=== PATIENT | male | born 1970 | race Caucasian/White ===

== ENCOUNTER 2018-10-07 16:50 | Inpatient (IN) | payer MEDICARE, MEDICAID ==
[~2018-10-07] VITALS: Ht 177.8 cm; Wt 113.4 kg
[2018-10-07] MEDS ORDERED: ONDANSETRON HCL 4MG/2ML INJ IV STA (17:25)
[2018-10-07] MEDS ORDERED: SODIUM CHLORIDE 0.9% 1,000 ML IV ONE (17:25)
[2018-10-07] MEDS ORDERED: MORPHINE SULFATE 4 MG/ML CPJ (NOT FOR IM USE) IV STA (17:25)
[2018-10-07] MEDS ORDERED: ACETAMINOPHEN 325MG TABLET PO STA (17:25)
[2018-10-07] MEDS ORDERED: PIPERACILLIN/TAZ 3.375G PREMIX 50 ML IV ONE (17:30)
[2018-10-07] MEDS ORDERED: VANCOMYCIN 1 G PREMIX 200 ML IV ONE (17:30)
[2018-10-07] MEDS ORDERED: OLANZAPINE 10 MG/VIAL IM ONE (18:30)
[2018-10-07] MEDS ORDERED: LORAZEPAM 2MG/ML CPJ IV ONE (18:30)
[2018-10-07 18:34] LABS: BASOPHILS % 1.2 % (0.0-2.0); EOSINOPHILS % 3.4 % (0.0-5.0); HEMATOCRIT. 25.7 % (42.0-52.0); HEMOGLOBIN. 8.8 g/dL (14.0-18.0); LYMPHOCYTES % 12.9 % (20.0-50.0); MEAN CORPUSCULAR VOLUME 93.5 fL (80.0-94.0); MEAN PLATELET VOLUME 7.6 fl (7.4-10.4); MONOCYTES % 14.6 % (2.0-8.0); NEUTROPHILS % 67.9 % (40.0-76.0); PLATELET 131 x1000/uL (130-400); RED BLOOD CELL COUNT 2.75 mill/uL (4.7-6.1); RED CELL DISTRIBUTION WIDTH 18.3 % (11.6-14.6)
[2018-10-07 18:36] LABS: CHLORIDE 101 mEq/L (98-107)
[2018-10-07 18:37] LABS: INR 1.2; PROTHROMBIN TIME 12.7 sec (9.6-11.0)
[2018-10-07 18:40] LABS: ETHANOL BLOOD < 10 mg/dL
[2018-10-07] MEDS ORDERED: ONDANSETRON HCL 4MG/2ML INJ IV PRN (20:30)
[2018-10-07] MEDS ORDERED: GUAIFENESIN 200MG/10ML SUGAR FREE UDC PO PRN (20:30)
[2018-10-07] MEDS ORDERED: TRAMADOL 50MG TABLET PO PRN (20:30)
[2018-10-07] MEDS ORDERED: MAGNESIUM/ALUMINUM HYDROXIDE/SIMETHICONE 30ML UDC PO PRN (20:30)
[2018-10-07] MEDS ORDERED: ACETAMINOPHEN 325MG TABLET PO PRN (20:30)
[2018-10-07] MEDS ORDERED: IPRATROPIUM/ALBUTEROL 0.5-3(2.5)MG/3ML NEB INH PRN (20:30)
[2018-10-07] MEDS ORDERED: PIPERACILLIN/TAZ 3.375G PREMIX 50 ML IV SCH (20:30)
[2018-10-07] MEDS ORDERED: ZOLPIDEM TARTRATE 5MG TABLET PO PRN (20:30)
[2018-10-07] MEDS ORDERED: NITROGLYCERIN 0.4MG TABLET SL SL PRN (20:30)
[2018-10-07] MEDS ORDERED: CLONIDINE 0.1MG TABLET PO PRN (20:30)
[2018-10-07] MEDS ORDERED: DOCUSATE SODIUM 100MG CAPSULE PO PRN (20:30)
[2018-10-07 23:50] VITALS: BP 160/74
[2018-10-08] MEDS: METOPROLOL TARTRATE 25MG TABLET PO SCH ×2 (00:27→21:23)
[2018-10-08] MEDS: DIPHENHYDRAMINE 50MG/ML VIAL IV PRN ×2 (00:29→10:03)
[2018-10-08] MEDS: LORAZEPAM 0.5MG TABLET PO PRN ×3 (01:35→21:49)
[2018-10-08 04:00] VITALS: BP 113/51
[2018-10-08] MEDS ORDERED: VANCOMYCIN 500 MG PREMIX 100 ML IV NR (04:00)
[2018-10-08] MEDS: PIPERACILLIN/TAZ 2.25G PREMIX 50 ML IV SCH ×2 (04:54→16:45)
[2018-10-08] MEDS: SEVELAMER CARBONATE 800 MG TABLET PO SCH ×3 (09:12→16:51)
[2018-10-08] MEDS: FAMOTIDINE 20MG TABLET PO SCH (09:12)
[2018-10-08] MEDS: ENOXAPARIN 30MG/0.3ML SYR SUBCUT SCH ×2 (09:12→09:30)
[2018-10-08] MEDS: ASPIRIN 325MG EC TABLET PO SCH (09:12)
[2018-10-08] MEDS: FOLIC ACID/VITAMIN B COMP W-C TABLET PO SCH (09:13)
[2018-10-08] MEDS ORDERED: DIPHENHYDRAMINE 25MG CAPSULE PO PRN (09:45)
[2018-10-08] MEDS: MORPHINE SULFATE 4 MG/ML CPJ (NOT FOR IM USE) IV PRN ×3 (10:02→21:44)
[2018-10-08 10:30] LABS: CREATINE KINASE MB FRACTION 4.2 ng/mL (0.5-3.6)
[2018-10-08] MEDS ORDERED: HEPARIN SODIUM 1,000 UNIT/1ML VIAL IV SCH (10:45)
[2018-10-08 12:00] VITALS: BP 149/71
[2018-10-08 16:00] VITALS: BP 132/74
[2018-10-08 20:00] VITALS: BP 142/85
[2018-10-08] MEDS: EPOETIN ALFA 10000UNITS/ML VIAL SUBCUT SCH ×2 (21:00→21:22)
[2018-10-09] VITALS: BP 125/76
[2018-10-09] MEDS: LORAZEPAM 0.5MG TABLET PO PRN (02:28)
[2018-10-09] MEDS: MORPHINE SULFATE 4 MG/ML CPJ (NOT FOR IM USE) IV PRN (03:59)
[2018-10-09 04:00] VITALS: BP 145/73
[2018-10-09] MEDS: PIPERACILLIN/TAZ 2.25G PREMIX 50 ML IV SCH (05:29)
[2018-10-09 06:33] LABS: BASOPHILS % 2.2 % (0.0-2.0); HEMATOCRIT. 24.6 % (42.0-52.0); HEMOGLOBIN. 8.5 g/dL (14.0-18.0); LYMPHOCYTES % 16.7 % (20.0-50.0); MEAN CORPUSCULAR HEMOGLOBIN 32.3 pg (28.0-32.0); MEAN CORPUSCULAR VOLUME 93.4 fL (80.0-94.0); MEAN PLATELET VOLUME 7.8 fl (7.4-10.4); MONOCYTES % 14.3 % (2.0-8.0); NEUTROPHILS % 58.8 % (40.0-76.0); PLATELET 133 x1000/uL (130-400); RED BLOOD CELL COUNT 2.64 mill/uL (4.7-6.1); RED CELL DISTRIBUTION WIDTH 18.3 % (11.6-14.6)
[2018-10-09 07:22] LABS: PHOSPHORUS 7.3 mg/dL (2.5-4.9)
[2018-10-09 08:00] VITALS: BP 151/73
[2018-10-09 08:09] VITALS: BP 151/73
[2018-10-09] MEDS ORDERED: ENOXAPARIN 40MG/0.4ML SYR SUBCUT SCH (09:00)
[2018-10-09] MEDS: FAMOTIDINE 20MG TABLET PO SCH (09:47)
[2018-10-09] MEDS: ASPIRIN 325MG EC TABLET PO SCH (09:47)
[2018-10-09] MEDS: FOLIC ACID/VITAMIN B COMP W-C TABLET PO SCH (09:47)
[2018-10-09] MEDS: METOPROLOL TARTRATE 25MG TABLET PO SCH (09:47)
== END 2018-10-09 10:27 | disposition left against medical advice (07) | DRG 291 ==
LOC: ER 16:50 → EDBEDREQ 17:30 → 8WST 20:00 → EDBEDREQ 20:06 → EDBEDREQTM 20:06 → EDBEDREQSVC 20:06 → SUPCPDRO 20:24 → ENRESERV 22:36
PROVIDERS: ADMIT Internal Medicine; ATTEND Internal Medicine
PROC: 5A1D70Z Performance of Urinary Filtration, Intermittent, Less than 6 Hours Per Day (ICD-10-PCS; principal; 2018-10-08)
DX: I13.2 Hypertensive heart and chronic kidney disease with heart failure and with stage 5 chronic kidney disease, or end stage renal disease (principal); J96.00 Acute respiratory failure, unspecified whether with hypoxia or hypercapnia; N18.6 End stage renal disease; I50.33 Acute on chronic diastolic (congestive) heart failure; E44.0 Moderate protein-calorie malnutrition; L03.90 Cellulitis, unspecified; R07.89 Other chest pain; I48.91 Unspecified atrial fibrillation; E83.51 Hypocalcemia; D63.8 Anemia in other chronic diseases classified elsewhere; I25.10 Atherosclerotic heart disease of native coronary artery without angina pectoris; Z99.2 Dependence on renal dialysis; Z68.35 Body mass index [BMI] 35.0-35.9, adult; Z82.49 Family history of ischemic heart disease and other diseases of the circulatory system; Z91.11 Patient's noncompliance with dietary regimen; Z91.14 Patient's other noncompliance with medication regimen; Z95.0 Presence of cardiac pacemaker; I25.2 Old myocardial infarction
CPT/HCPCS: 36415; 71045; 80048; 80061; 80202; 80320; 82550; 82553; 82962; 83036; 83605; 83735; 84100; 84145; 84484; 93005; 93970; 99285; J0885; J1200; J1644; J1650; J2060; J2270; J2405; J2543; J3370; J3490; J7030; J7050; Q0163; G0480